=== PATIENT | female | born 1930 | race Caucasian/White ===

== ENCOUNTER 2017-08-10 12:47 | Emergency (ER) | payer OTHER, MEDICARE ==
[~2017-08-10] VITALS: Ht 152.4 cm; Wt 56.0 kg
[2017-08-10 12:56] VITALS: TEMP 36.4; Ht 152.4 cm; Wt 56.0 kg
[2017-08-10] MEDS ORDERED: ONDANSETRON INJ 2 MG/ML 2 ML VIAL ONE (14:06)
[2017-08-10] MEDS ORDERED: ONDANSETRON 4MG OD TAB PO STA (14:26)
[2017-08-10] MEDS ORDERED: SODIUM CHLORIDE 0.9% 500ML 500 ML IV STA (14:26)
--- NOTE | 2017-08-10 14:32 | EMERGENCY ROOM VISIT NOTE ---
History First contact with patient: 13:57 Chief Complaint: URINARY SYMPTOMS Stated Complaint: DIZZINESS, RECENT UTI, KIDNEY ISSUES Nursing Triage Summary: Pt arrives to room via w/c with daughter in law. Pt reports N,V and dizziness last night. Today reports nausea, dizziness. Recently treated for UTI History of Present Illness The patient is a 86 year old female who presents to the Emergency Room with complaints of nausea and vomiting that has been going on for the last several days. Patient is currently being treated for UTI with Bactrim. She has felt nauseated since being put on the Bactrim. She had some dizziness earlier this morning. She currently denies any headache or changes in vision. She does not have any pain. She denies any difficulty breathing or chest pain. She denies any abdominal pain. No diarrhea. She denies any hematemesis. The patient does take Coumadin for history of TIAs. The patient's [id number] also notes that her blood pressure has been running fairly low. She recently was switched from Hyzaar to losartan 2 days ago. Review of Systems 10 system review performed and negative unless noted in HPI or below Past Medical/Surgical History Hypertension Diverticulitis TIA Social History Smoking Status: Never Smoker Housing Status: lives alone Current/Historical Medications Scheduled Atorvastatin (Lipitor), 20 MG PO DAILY Calcium W/ Magnesium (Calcium & Magnesium), 1 TAB PO DAILY Cetirizine (Zyrtec), 10 MG PO DAILY Fish Oil ([place]-3), 1 CAP PO DAILY Levothyroxine Sodium (Synthroid), 25 MCG PO DAILY Losartan Potassium (Losartan Potassium), 50 MG PO DAILY Metoprolol Succ (Toprol Xl) (Toprol-Xl), 25 MG PO DAILY Misc Natural Products (Osteo Bi-Flex Advanced Tr), 2 TAB PO DAILY Multiple Vitamins W/ Minerals (Centrum Adults), 1 TAB PO DAILY Ondasetron Odt (Zofran Odt), 4 MG SL Q6H Psyllium (Metamucil), 2 DOSE PO DAILY Saline (Saline Nasal Amenia ), 1 SPRY VANDANA BID Warfarin Sod (Jantoven), 2 MG PO DAILY Physical Exam Vital Signs Date Time Temp Pulse Resp B/P (MAP) Pulse Ox O2 Delivery O2 Flow Rate FiO2 08/10/17 18:59 68 16 120/63 98 08/10/17 17:42 70 157/72 94 172/79 90 173/108 08/10/17 17:23 68 08/10/17 17:04 77 16 173/74 98 Room Air 08/10/17 16:06 70 16 142/65 98 08/10/17 14:04 75 08/10/17 14:00 73 172/69 86 185/108 96 126/99 08/10/17 12:56 36.4 95 16 153/74 95 Room Air Physical Exam GENERAL: 86-year-old female, nauseated,, nondiaphoretic, SKIN: The skin was without rashes, erythema, edema, or bruising. HEAD: Normocephalic atraumatic. EYES: Pupils equal round and reactive to light and accommodation. Conjunctivae without injection, sclerae without icterus. Extraocular movements intact. MOUTH: Mucous membranes slightly dry tonsils are not enlarged. Pharynx without erythema or exudate. Uvula midline. Airway patent. Tongue does not deviate. NECK: Supple without nuchal rigidity. No lymphadenopathy. Cervical spine is nontender. No JVD. HEART: Regular rate and rhythm without murmurs gallops or rubs. LUNGS: Clear to auscultation bilaterally without wheezes, rales or rhonchi. No accessory muscle use. ABDOMEN: Positive bowel sounds x 4.Soft, nontender, without organomegaly. No guarding or rebound tenderness. MUSCULOSKELETAL: No muscle atrophy, erythema, or edema noted. Strength 5/5 throughout. NEURO: Patient was alert and oriented to person place and time. Normal sensation to touch. No focal neurological deficits. Medical Decision & Procedures ER Provider Diagnostic Interpretation: CT head without contrast IMPRESSION: No acute intracranial findings. Electronically signed by: Luiz Carvalho M.D. 08/10/2017 3:44 PM Dictated Date/Time: 08/10/2017 3:42 PM The status of this report is Signed. Draft = Not yet reviewed or approved by Radiologist. Signed = Reviewed and approved by Radiologist. <AttendingPhy></AttendingPhy> <FamilyPhy>No Doctor, Assigned</FamilyPhy> < PrimaryPhy>No Doctor, Assigned</PrimaryPhy> <UnitNumber>[id number]</UnitNumber> <VisitNumber>[id number]</VisitNumber> <PatientName>YOSELIN WONG</ PatientName> <DateOfBirth>1930</DateOfBirth> <Location>[facility]</Location> < ServiceDate>08/10/17</ServiceDate> <MNE>ESINDI</MNE> <OrderingPhy>UbaldoSaba Kristina AGUILAR</OrderingPhy> <OrderingPhyMNE>f rep ord dr lozoya</OrderingPhyMNE> < DictatingPhyMNE>f rep dict dr lozoya</DictatingPhyMNE> <CCListMNE>f rep ct mne</ CCListMNE> <AdmittingPhyMNE>f pt admit dr lozoya</AdmittingPhyMNE> <AttendingPhyMNE >f pt attend dr lozoya</AttendingPhyMNE> <ConsultingPhyMNE>f pt consult dr lozoya</ConsultingPhyMNE> <FamilyPhyMNE>f pt fam dr lozoya</FamilyPhyMNE> <OtherPhyMNE>f pt other dr lozoya</OtherPhyMNE> < PrimaryPhyMNE>f pt prim care dr lozoya</PrimaryPhyMNE> <ReferringPhyMNE>f pt referring dr lozoya</ReferringPhyMNE> CT abdomen and pelvis without contrast IMPRESSION: 1. No evidence of bowel obstruction. No evidence of free air 2. Diverticulosis. No evidence of acute diverticulitis 3. Absent left kidney 4. No renal, ureteral, or bladder calculi identified. Electronically signed by: Trev Infante M.D. 08/10/2017 3:47 PM Dictated Date/Time: 08/10/2017 3:43 PM The status of this report is Signed. Draft = Not yet reviewed or approved by Radiologist. Signed = Reviewed and approved by Radiologist. <AttendingPhy></AttendingPhy> <FamilyPhy>No Doctor, Assigned</FamilyPhy> < PrimaryPhy>No Doctor, Assigned</PrimaryPhy> <UnitNumber>[id number]</UnitNumber> <VisitNumber>[id number]</VisitNumber> <PatientName>YOSELIN WONG</ PatientName> <DateOfBirth>1930</DateOfBirth> <Location>[facility]</Location> < ServiceDate>08/10/17</ServiceDate> <MNE>ESINDI</MNE> <OrderingPhy Chest/abdominal x-rays IMPRESSION: 1. No acute intra-abdominal pathology. Electronically signed by: Antonio Rashid M.D. 08/10/2017 3:52 PM Dictated Date/Time: 08/10/2017 3:51 PM The status of this report is Signed. Draft = Not yet reviewed or approved by Radiologist. Signed = Reviewed and approved by Radiologist. <AttendingPhy></AttendingPhy> <FamilyPhy>No Doctor, Assigned</FamilyPhy> < PrimaryPhy>No Doctor, Assigned</PrimaryPhy> <UnitNumber>[id number]</UnitNumber> <VisitNumber>[id number]</VisitNumber> <PatientName>YOSELIN WONG</ PatientName> <DateOfBirth>1930</DateOfBirth> <Location>[facility]</Location> < ServiceDate>08/10/17</ServiceDate> <MNE>ESINDI</MNE> <OrderingPhy>Saba Conner PA-C</OrderingPhy> <OrderingPhyMNE>f rep ord dr lozoya</OrderingPhyMNE> < DictatingPhyMNE>f rep dict dr lozoya</DictatingPhyMNE> <CCListMNE>f rep ct mne</ CCListMNE> <AdmittingPhyMNE>f pt admit dr lozoya</AdmittingPhyMNE> <AttendingPhyMNE >f pt attend dr lozoya</AttendingPhyMNE> <ConsultingPhyMNE>f pt consult dr lozoya</ConsultingPhyMNE> <FamilyPhyMNE>f pt fam dr lozoya</FamilyPhyMNE> <OtherPhyMNE>f pt other dr lozoya</OtherPhyMNE> < PrimaryPhyMNE>f pt prim care dr lozoya</PrimaryPhyMNE> <ReferringPhyMNE>f pt referring dr lozoya</ReferringPhyMNE> IMPRESSION: 1. No acute cardiopulmonary disease. Electronically signed by: Antonio Rashid M.D. 08/10/2017 2:51 PM Dictated Date/Time: 08/10/2017 2:50 PM The status of this report is Signed. Draft = Not yet reviewed or approved by Radiologist. Signed = Reviewed and approved by Radiologist. <AttendingPhy></AttendingPhy> <FamilyPhy>No Doctor, Assigned</FamilyPhy> < PrimaryPhy>No Doctor, Assigned</PrimaryPhy> <UnitNumber>[id number]</UnitNumber> <VisitNumber>[id number]</VisitNumber> <PatientName>YOSELIN WONG</ PatientName> <DateOfBirth>1930</DateOfBirth> <Location>[facility]</Location> < ServiceDate>08/10/17</ServiceDate> <MNE>ESINDI</MNE> <OrderingPhy>Saba Conner PA-C</OrderingPhy> <OrderingPhyMNE>f rep ord dr lozoya</OrderingPhyMNE> < DictatingPhyMNE>f rep dict dr lozoya</DictatingPhyMNE> <CCListMNE>f rep ct mne</ CCListMNE> <AdmittingPhyMNE>f pt admit dr lozoya</AdmittingPhyMNE> <AttendingPhyMNE >f pt attend dr lozoya</AttendingPhyMNE> <ConsultingPhyMNE>f pt consult dr lozoya</ConsultingPhyMNE> <FamilyPhyMNE>f pt fam dr lozoya</FamilyPhyMNE> <OtherPhyMNE>f pt other dr lozoya</OtherPhyMNE> < PrimaryPhyMNE>f pt prim care dr lozoya</PrimaryPhyMNE> <ReferringPhyMNE>f pt referring dr lozoya</ReferringPhyMNE> Laboratory Results 08/10/17 14:25 Red Blood Count 4.13, Mean Corpuscular Volume 90.3, Mean Corpuscular Hemoglobin 31.5, Mean Corpuscular Hemoglobin Concent 34.9, Mean Platelet Volume 9.6, Neutrophils (%) (Auto) 44.8, Lymphocytes (%) (Auto) 45.5, Monocytes (%) (Auto) 8.8, Eosinophils (%) (Auto) 0.3, Basophils (%) (Auto) 0.3, Neutrophils # (Auto) 3.51, Lymphocytes # (Auto) 3.55, Monocytes # (Auto) 0.69, Eosinophils # (Auto) 0.02, Basophils # (Auto) 0.02 08/10/17 14:25 Test 08/10/17 14:25 08/10/17 16:40 White Blood Count 7.81 K/uL (4.8-10.8) Red Blood Count 4.13 M/uL (4.2-5.4) Hemoglobin 13.0 g/dL (12.0-16.0) Hematocrit 37.3 % (37-47) Mean Corpuscular Volume 90.3 fL (80-100) Mean Corpuscular Hemoglobin 31.5 pg (25-34) Mean Corpuscular Hemoglobin Concent 34.9 g/dl (32-36) Platelet Count 282 K/uL (130-400) Mean Platelet Volume 9.6 fL (7.4-10.4) Neutrophils (%) (Auto) 44.8 % Lymphocytes (%) (Auto) 45.5 % Monocytes (%) (Auto) 8.8 % Eosinophils (%) (Auto) 0.3 % Basophils (%) (Auto) 0.3 % Neutrophils # (Auto) 3.51 K/uL (1.4-6.5) Lymphocytes # (Auto) 3.55 K/uL (1.2-3.4) Monocytes # (Auto) 0.69 K/uL (0.11-0.59) Eosinophils # (Auto) 0.02 K/uL (0-0.5) Basophils # (Auto) 0.02 K/uL (0-0.2) RDW Standard Deviation 46.6 fL (36.4-46.3) RDW Coefficient of Variation 14.1 % (11.5-14.5) Immature Granulocyte % (Auto) 0.3 % Immature Granulocyte # (Auto) 0.02 K/uL (0.00-0.02) Prothrombin Time 27.2 SECONDS (9.0-12.0) Prothromb Time International Ratio 2.6 (0.9-1.1) Anion Gap 9.0 mmol/L (3-11) Est Creatinine Clear Calc Drug Dose 28.3 ml/min Estimated GFR () 52.3 Estimated GFR (Non- 45.1 BUN/Creatinine Ratio 11.7 (10-20) Calcium Level 9.4 mg/dl (8.5-10.1) Total Bilirubin 0.5 mg/dl (0.2-1) Aspartate Amino Transf (AST/SGOT) 37 U/L (15-37) Alanine Aminotransferase (ALT/SGPT) 31 U/L (12-78) Alkaline Phosphatase 62 U/L (45-117) Troponin I < 0.015 ng/ml (0-0.045) Total Protein 7.9 gm/dl (6.4-8.2) Albumin 3.8 gm/dl (3.4-5.0) Globulin 4.1 gm/dl (2.5-4.0) Albumin/Globulin Ratio 0.9 (0.9-2) Lipase 183 U/L (73-393) Urine Color YELLOW Urine Appearance CLEAR (CLEAR) Urine pH 6.5 (4.5-7.5) Urine Specific [place] 1.018 (1.000-1.030) Urine Protein NEG (NEG) Urine Glucose (UA) NEG (NEG) Urine Ketones NEG (NEG) Urine Occult Blood NEG (NEG) Urine Nitrite NEG (NEG) Urine Bilirubin NEG (NEG) Urine Urobilinogen NEG (NEG) Urine Leukocyte Esterase SMALL (NEG) Urine WBC (Auto) 1-5 /hpf (0-5) Urine RBC (Auto) 0-4 /hpf (0-4) Urine Hyaline Casts (Auto) 0 /lpf (0-5) Urine Epithelial Cells (Auto) 5-10 /lpf (0-5) Urine Bacteria (Auto) NEG (NEG) Medications Administered Medications (Trade) Dose Ordered Sig/Adrienne Route Start Time Stop Time Status Last Admin Dose Admin Ondansetron HCl (Zofran Inj) 4 mg STK-MED ONCE .ROUTE 08/10/17 14:06 08/10/17 14:07 DC 08/10/17 14:36 4 MG Sodium Chloride 500 ml @ 999 mls/hr Q31M STAT IV 08/10/17 14:26 08/10/17 14:56 DC 08/10/17 14:38 999 MLS/HR Sodium Chloride 250 ml @ 999 mls/hr Q16M STAT IV 08/10/17 16:28 08/10/17 16:43 DC 08/10/17 17:02 999 MLS/HR Meclizine HCl (Antivert Tab) 25 mg NOW STAT PO 08/10/17 17:53 08/10/17 17:54 DC 08/10/17 18:12 25 MG ECG Per My Interpretation Indication: other Rate (beats per minute): 64 Findings: RBBB (Incomplete) Change: no significant change (Compared to an EKG via email) ED Course Patient was seen and examined Vital signs including blood pressure were reviewed medications list was verified with patient Labs were obtained, and a saline lock was established The patient was medicated with Zofran and hydrated with 500 cc of normal saline Upon reevaluation, the patient was still feeling nauseated. She was given meclizine. She was also hydrated with 250 cc of normal saline I thoroughly reviewed the workup with the patient and the patient's daughter. They voiced understanding. They were comfortable with her being discharged home. The patient was also seen and examined by my supervising physician who is in agreement with my plan. I reviewed discharge instructions the patient. They voiced understanding and had no further questions. Medical Decision Differential diagnosis: Adverse drug reaction, dehydration, SBO, diverticulitis , TIA, CVA, viral gastroenteritis, bacterial gastroenteritis, vertigo This patient is an 86-year-old female that presents to emergency department with complaints of vomiting and dizziness upon standing. Her symptoms have been going on ever since she was prescribed Bactrim for a UTI. My thought was that it was likely the Bactrim making her ill. Her workup reveals no leukocytosis. Urinalysis is unremarkable. Renal function intact. She was significantly orthostatic. This was treated with fluids, Zofran and meclizine with good symptomatic relief. CT of the head did not show any acute findings. I also performed a CT of the abdomen and pelvis, which was also unremarkable. There is possibly a vertigo component to her symptoms. The patient was given a home pack of meclizine in addition to Zofran. They were comfortable being discharged home with close follow-up. They also agreed to return immediately to the emergency department with any worsening symptoms. This chart was completed in part utilizing [employer] Voice Recognition software. Attempts were made to minimize the grammatical errors, random word insertions, pronoun errors and incomplete sentences. Any formal questions or concerns about the content, text or information contained within the body of this dictation should be directly addressed to the provider for clarification. Medication Reconcilliation Current Medication List: was personally reviewed by me Blood Pressure Screening Patient's blood pressure: Elevated blood pressure Blood pressure disposition: Did not require urgent referral Impression Primary Impression: Vomiting Departure Information Dispostion Home / Self-Care Condition GOOD Prescriptions Ondasetron Odt (ZOFRAN ODT) 4 Mg Tab 4 MG SL Q6H for Nausea, #15 TAB Prov: Saba Conner PA-C 08/10/17 Referrals No Doctor, Assigned (PCP) Patient Instructions My [facility] Additional Instructions You have been evaluated in the emergency department for vomiting and dizziness. It is possible that this is due to the medication versus possibly also vertigo. Please try to stay well hydrated. Increase fluids over the next several days. Please take Zofran 1 tab under the tongue every 6 hours as needed for nausea Please take meclizine 1 tab every 8 hours as needed for dizziness Please follow-up as soon as possible with your primary care physician. Please do not hesitate to return to the emergency department with any new, worsening or concerning symptoms; especially, persistent vomiting, Worsening dizziness, headache, slurred speech or weakness
[2017-08-10] MEDS ORDERED: CZR50 PO (14:36)
[2017-08-10] MEDS ORDERED: SYN25 PO (14:36)
[2017-08-10] MEDS ORDERED: MISCTAB29 PO (14:36)
[2017-08-10] MEDS ORDERED: SALI1SPR15 NAE (14:36)
[2017-08-10] MEDS ORDERED: MULT-610 PO (14:41)
[2017-08-10] MEDS ORDERED: WARF2.5T8 PO (14:41)
[2017-08-10] MEDS ORDERED: CALC-214 PO (14:41)
[2017-08-10] MEDS ORDERED: CETI10TA84 PO (14:41)
[2017-08-10] MEDS ORDERED: PSYL1.7W PO (14:41)
[2017-08-10] MEDS ORDERED: OMEG10007 PO (14:41)
[2017-08-10] MEDS ORDERED: ATOR-22 PO (14:41)
[2017-08-10] MEDS ORDERED: METO25TA3 PO (14:41)
[2017-08-10] MEDS ORDERED: WARF2TAB8 PO (14:42)
[2017-08-10 14:46] LABS: BASO % 0.3 %; BASO ABS # 0.02 K/uL (0-0.2); EOS % 0.3 %; EOS ABS # 0.02 K/uL (0-0.5); HEMATOCRIT 37.3 % (37-47); IG# 0.02 K/uL (0.00-0.02); LYMPH % 45.5 %; LYMPH ABS # 3.55 K/uL (1.2-3.4); MEAN CELL VOLUME 90.3 fL (80-100); MEAN CORPUSCULAR HEMOGLOBIN 31.5 pg (25-34); MEAN CORPUSCULAR HGB CONC 34.9 g/dl (32-36); MEAN PLATELET VOLUME 9.6 fL (7.4-10.4); MONO % 8.8 %; MONO ABS # 0.69 K/uL (0.11-0.59); NEUT % 44.8 %; NEUT ABS # 3.51 K/uL (1.4-6.5); PLATELET COUNT 282 K/uL (130-400); RED CELL DISTRIBUTION WIDTH CV 14.1 % (11.5-14.5); RED CELL DISTRIBUTION WIDTH SD 46.6 fL (36.4-46.3); WHITE BLOOD COUNT 7.81 K/uL (4.8-10.8)
[2017-08-10 14:48] LABS: INR 2.6 (0.9-1.1)
--- NOTE | 2017-08-10 14:52 | DIAGNOSTIC IMAGING REPORT ---
CHEST ONE VIEW PORTABLE CLINICAL HISTORY: 86 years-old Female presenting with dizzy, recent UTI. TECHNIQUE: Portable upright AP view of the chest was obtained. COMPARISON: None. FINDINGS: Atherosclerosis of the aortic arch. Cardiac silhouette normal in size. Mitral annular calcification suggested. No focal opacity. No large effusion or pneumothorax. Osseous structures normal. Upper abdomen normal. IMPRESSION: 1. No acute cardiopulmonary disease. Electronically signed by: Antonio Rashid M.D. 08/10/2017 2:51 PM Dictated Date/Time: 08/10/2017 2:50 PM
[2017-08-10 14:55] LABS: ALBUMIN 3.8 gm/dl (3.4-5.0); ALT/SGPT 31 U/L (12-78); AST/SGOT 37 U/L (15-37); BLOOD UREA NITROGEN 13 mg/dl (7-18); CALCIUM 9.4 mg/dl (8.5-10.1); CARBON DIOXIDE 25 mmol/L (21-32); GLUCOSE 130 mg/dl (70-99); LIPASE 183 U/L (73-393); POTASSIUM 3.6 mmol/L (3.5-5.1); SODIUM 133 mmol/L (136-145)
[2017-08-10 15:00] LABS: ALKALINE PHOSPHATASE 62 U/L (45-117); TOTAL PROTEIN 7.9 gm/dl (6.4-8.2)
--- NOTE | 2017-08-10 15:45 | DIAGNOSTIC IMAGING REPORT ---
CT OF THE HEAD WITHOUT CONTRAST CLINICAL HISTORY: Dizzy. Vomiting. COMPARISON STUDY: No previous studies for comparison. CT DOSE: 537.48 mGy.cm TECHNIQUE: Helical axial images of the head were obtained without IV contrast. Automated exposure control was utilized for the study. A dose lowering technique was utilized adhering to the principles of ALARA. FINDINGS: No acute intracranial hemorrhage, midline shift or mass effect is present. Ventricular system is normal for age. Basilar cisterns are patent. There are no extra-axial collections. White matter hypodensities favor small vessel disease. There are no findings to suggest acute dural sinus thrombosis or acute territorial infarct. There are no significant calvarial abnormalities. Visualized portions of the sinuses and mastoid air cells are clear. IMPRESSION: No acute intracranial findings. Electronically signed by: Luiz Carvalho M.D. 08/10/2017 3:44 PM Dictated Date/Time: 08/10/2017 3:42 PM
--- NOTE | 2017-08-10 15:48 | DIAGNOSTIC IMAGING REPORT ---
CT SCAN OF THE ABDOMEN AND PELVIS WITHOUT CONTRAST CLINICAL HISTORY: Vomiting, urinary tract infection, possible pyelonephritis. Possible diverticulitis. Pain. COMPARISON STUDY: None TECHNIQUE: CT scan of the abdomen and pelvis was performed from the lung bases to the proximal femurs. Images are reviewed in the axial, sagittal, and coronal planes. IV contrast was not administered for this examination. A dose lowering technique was utilized adhering to the principles of ALARA. CT DOSE: 377.09 mGy.cm FINDINGS: Lower chest: The heart is normal in size and configuration, without pericardial effusion. The lung bases and pleural spaces are clear. Liver: The unenhanced liver is normal in size, contour, and attenuation. There is no intrahepatic biliary ductal dilatation. Gallbladder: Unremarkable. Spleen: Normal in size and attenuation. Pancreas: Unremarkable. Adrenal glands: Unremarkable. Kidneys: The left kidney is absent. No right renal calculi are visualized. No ureteral or bladder calculi are visualized. There is minimal fullness of the right renal collecting system. Bowel: There are no transition zones indicate bowel obstruction. There is no acute diverticulitis. By history the appendix is surgically absent. There are postsurgical changes within the rectosigmoid. Peritoneum: There is no intraperitoneal free air or abdominal ascites. Vasculature: The abdominal aorta is normal in course and caliber. Adenopathy: None. Pelvic viscera: The uterus appears surgically absent. Skeletal structures: No destructive osseous lesions are seen. IMPRESSION: 1. No evidence of bowel obstruction. No evidence of free air 2. Diverticulosis. No evidence of acute diverticulitis 3. Absent left kidney 4. No renal, ureteral, or bladder calculi identified. Electronically signed by: Trev Infante M.D. 08/10/2017 3:47 PM Dictated Date/Time: 08/10/2017 3:43 PM
--- NOTE | 2017-08-10 15:53 | DIAGNOSTIC IMAGING REPORT ---
ABDOMEN 2 VIEWS CLINICAL HISTORY: 86 years-old Female presenting with vomiting. TECHNIQUE: Single supine view of the abdomen was obtained. COMPARISON: CT from earlier the same day. FINDINGS: Nonobstructive bowel gas pattern. No gross pneumoperitoneum. Allowing for bowel gas and stool, no calcifications to suggest nephrolithiasis. Multiple pelvic phleboliths. Osseous structures normal. Lung bases clear. Mitral annular calcification noted. IMPRESSION: 1. No acute intra-abdominal pathology. Electronically signed by: Antonio Rashid M.D. 08/10/2017 3:52 PM Dictated Date/Time: 08/10/2017 3:51 PM
[2017-08-10] MEDS ORDERED: SODIUM CHLORIDE 0.9% 250ML 250 ML IV STA (16:28)
[2017-08-10] MEDS ORDERED: MECLIZINE HCL 25 MG TAB PO STA (17:53)
[2017-08-10] MEDS ORDERED: ONDANSETRON HOME PACK 4MG OD TAB PO ONE (18:15)
[2017-08-10] MEDS ORDERED: MECLIZINE HCL 25MG HOME PACK PO ONE (18:15)
[2017-08-10] MEDS ORDERED: ONDA4TAB10 SL (18:18)
[2017-08-10 18:59] VITALS: BP 120/63; PULSE 68; O2SAT 98
== END 2017-08-10 19:01 | disposition home or self-care (01) ==
LOC: C.EDB 12:52
DX: R11.2 Nausea with vomiting, unspecified (principal); R42 Dizziness and giddiness; N39.0 Urinary tract infection, site not specified; I10 Essential (primary) hypertension; K57.92 Diverticulitis of intestine, part unspecified, without perforation or abscess without bleeding; Z79.01 Long term (current) use of anticoagulants; Z86.73 Personal history of transient ischemic attack (TIA), and cerebral infarction without residual deficits